=== PATIENT | male | born 1980 ===

== ENCOUNTER 2021-10-01 15:42 | Emergency (ER) ==
[~2021-10-01] VITALS: Ht 180.3 cm; Wt 70.5 kg
[2021-10-01 15:42] VITALS: BP 167/78
[2021-10-01] MEDS ORDERED: CLON0.5T2 PO (15:59)
[2021-10-01] MEDS ORDERED: ZOLO50TA PO (15:59)
== END 2021-10-01 23:20 | disposition left against medical advice (07) ==
LOC: M ED 15:42
DX: Z53.29 Procedure and treatment not carried out because of patient's decision for other reasons (principal)